=== PATIENT | female | born 1995 | race Two or more races ===

== ENCOUNTER 2022-06-29 20:40 | Emergency (ER) | payer OTHER ==
[~2022-06-29] VITALS: Ht 162.6 cm; Wt 127.0 kg
--- NOTE | 2022-06-29 21:13 | NUR ---
DENNIS 7 FROM HOME FOR C/O RUQ ABD PAIN RADIATING TO BACK SINCE 399 , REPORTED PASSED KIDNEY STONE AT 1700, +N/V. PT A/OX4. TOLERATING R/A WELL WITH NO RESP DISTRESS. CONNECTED PT TO POX AND MONITOR. SAFETY MEASURES IN PLACE.
[2022-06-29] MEDS ORDERED: ONDANSETRON HCL/PF 4 MG/2 ML VIAL IVP ONE (21:30)
[2022-06-29] MEDS ORDERED: IV NS 0.9% 1,000 ML BAG IV ONE (21:30)
--- NOTE | 2022-06-29 21:33 | NUR ---
US TECH AT PT'S BEDSIDE
[2022-06-29] MEDS ORDERED: ONDANSETRON HCL/PF 4 MG/2 ML VIAL ONE (21:35)
--- NOTE | 2022-06-29 22:01 | NUR ---
IV RAC #20G S/L. WEBSITE PROGRAMMER AT PT'S BEDSIDE
--- NOTE | 2022-06-29 22:03 | NUR ---
URINE COLLECTED AND SENT TO LAB
[2022-06-29 22:24] LABS: CALCIUM, SERUM 9.1 mg/dL (8.5-10.1); CREATININE 0.6 mg/dL (0.6-1.3); POTASSIUM 3.6 mmol/L (3.5-5.1)
[2022-06-29 22:31] LABS: BASOPHILS % (AUTO) 0.2 % (0.0-2.0); EOSINOPHILS % (AUTO) 1.1 % (0.0-6.0); HEMATOCRIT 39 % (33-45); HEMOGLOBIN 12.4 g/dL (11.5-14.8); LYMPHOCYTES # (AUTO) 3.1 K/uL (0.8-4.8); LYMPHOCYTES % (AUTO) 24.4 % (20.0-44.0); MEAN CORPUSCULAR HGB CONC 32 g/dl (31.0-36.0); MEAN CORPUSCULAR VOLUME 79 fL (82-100); MONOCYTES # (AUTO) 0.7 K/uL (0.1-1.30); MONOCYTES % (AUTO) 5.2 % (2.0-12.0); NEUTROPHILS # (AUTO) 8.9 K/uL (1.8-8.9); NEUTROPHILS % (AUTO) 69.1 % (43.0-81.0); PLATELET COUNT (AUTO) 213 K/uL (150-450); RED BLOOD CELL COUNT(AUTO) 4.93 MIL/uL (4.0-5.2); WHITE BLOOD COUNT (AUTO) 12.9 K/uL (4.3-11.0)
[2022-06-29 22:32] LABS: ALBUMIN 3.9 g/dL (3.4-5.0); BILIRUBIN,DIRECT 0.2 mg/dL (0.0-0.2); BILIRUBIN,TOTAL 0.5 mg/dL (0.2-1.0); TOTAL PROTEIN, SERUM 7.9 g/dL (6.4-8.2)
--- NOTE | 2022-06-29 22:33 | NUR ---
PT TAKEN TO SARAY GAYTAN & SIGNED FOR WAIVER FORM
[2022-06-29 23:04] LABS: BILIRUBIN,URINE NEGATIVE (NEGATIVE); COLOR,URINE YELLOW (YELLOW); LEUKOCYTE ESTERASE ,URINE NEGATIVE (NEGATIVE); NITRITE, URINE NEGATIVE (NEGATIVE); PROTEIN,URINE NEGATIVE (NEGATIVE); UGLUCOSE NEGATIVE (NEGATIVE); UROBILINOGEN,URINE 0.2 EU/dL (0.2)
[2022-06-30] MEDS ORDERED: FAMO20TA8 PO (00:05)
[2022-06-30] MEDS ORDERED: MAG HYDROX/AL HYDROX/SIMETH 30 ML UDC ONE (00:08)
--- NOTE | 2022-06-30 00:22 | NUR ---
IV removed. Catheter intact and site benign. Pressure and 4x4 applied to site. No bleeding noted.
[2022-06-30] MEDS ORDERED: LIDOCAINE VISCOUS 2% UD 15 ML UDC MM ONE (00:30)
[2022-06-30] MEDS ORDERED: MAG HYDROX/AL HYDROX/SIMETH 30 ML UDC PO ONE (00:30)
--- NOTE | 2022-06-30 00:44 | NUR ---
Patient discharged to home in stable condition. Written and verbal after care instructions given. Patient verbalizes understanding of instruction.
[2022-06-30 01:23] VITALS: BP 105/69
== END 2022-06-30 01:24 | disposition home or self-care (01) ==
LOC: ER 20:43
DX: R10.11 Right upper quadrant pain (principal); I10 Essential (primary) hypertension; E11.9 Type 2 diabetes mellitus without complications; J45.909 Unspecified asthma, uncomplicated; Z88.0 Allergy status to penicillin; Z88.1 Allergy status to other antibiotic agents; Z88.2 Allergy status to sulfonamides; Z88.5 Allergy status to narcotic agent
CPT/HCPCS: 99285; 74176; 96374; 76705; 96361; 85025; 80048; 83690; 80076; 84703; 81003; 36415; J2405; J7030

== ENCOUNTER 2025-02-07 12:51 | Emergency (ER) | payer OTHER ==
[~2025-02-07] VITALS: Ht 162.6 cm; Wt 114.8 kg
[~2025-02-07 12:51] MED LIST: FAMO20TA8 PO
[2025-02-07 13:28] LABS: PLATELET COUNT (AUTO) 196 K/uL (150-450); RED BLOOD CELL COUNT(AUTO) 4.75 MIL/uL (4.0-5.2); RED CELL DISTRIBUTION WIDTH 14.2 % (11.5-15.0); WHITE BLOOD COUNT (AUTO) 7.5 K/uL (4.3-11.0)
[2025-02-07 13:29] LABS: CALCIUM, SERUM 8.5 mg/dL (8.5-10.1); CREATININE 0.8 mg/dL (0.6-1.3); SODIUM SERUM 141 mmol/L (136-145); UREA NITROGEN, BLOOD 7 mg/dL (7-18)
[2025-02-07 13:41] LABS: NT-PRO BNP 85 pg/mL (0-125)
[2025-02-07 15:31] VITALS: BP 122/81; TEMP 98.4; O2SAT 98
== END 2025-02-07 15:32 | disposition home or self-care (01) ==
LOC: ER 12:59
DX: R55 Syncope and collapse (principal); T50.905A Adverse effect of unspecified drugs, medicaments and biological substances, initial encounter; R07.89 Other chest pain; I11.9 Hypertensive heart disease without heart failure; R06.02 Shortness of breath; E11.9 Type 2 diabetes mellitus without complications; G40.909 Epilepsy, unspecified, not intractable, without status epilepticus; I48.0 Paroxysmal atrial fibrillation; J45.909 Unspecified asthma, uncomplicated; Z88.0 Allergy status to penicillin; Z88.1 Allergy status to other antibiotic agents; Z88.2 Allergy status to sulfonamides; Z88.5 Allergy status to narcotic agent; Y92.89 Other specified places as the place of occurrence of the external cause
CPT/HCPCS: 36415; 71045-TC; 80048-TC; 83880; 84443-TC; 84484-TC; 85025-TC

== ENCOUNTER 2025-02-16 21:11 | Emergency (ER) | payer OTHER ==
[~2025-02-16] VITALS: Ht 162.6 cm; Wt 114.8 kg
[2025-02-16 22:00] LABS: PLATELET COUNT (AUTO) 190 K/uL (150-450); RED BLOOD CELL COUNT(AUTO) 4.91 MIL/uL (4.0-5.2); RED CELL DISTRIBUTION WIDTH 14.4 % (11.5-15.0); WHITE BLOOD COUNT (AUTO) 10.9 K/uL (4.3-11.0)
[2025-02-16 22:16] LABS: ASPARTATE AMINOTRANSFERASE 16.0 U/L (15-37); CALCIUM, SERUM 9.1 mg/dL (8.5-10.1); CREATININE 0.8 mg/dL (0.6-1.3); SODIUM SERUM 141.0 mmol/L (136-145); TOTAL PROTEIN, SERUM 8.1 g/dL (6.4-8.2); UREA NITROGEN, BLOOD 12.0 mg/dL (7-18)
[2025-02-16] MEDS: IV NS 0.9% 1,000 ML BAG IV ONE (22:18)
[2025-02-16 22:28] LABS: PREGNANCY TEST URINE QUAL NEGATIVE (NEGATIVE)
[2025-02-16 22:32] LABS: APPEARANCE,URINE CLEAR (CLEAR); BLOOD, URINE Negative Ery/uL (NEGATIVE); LEUKOCYTE ESTERASE ,URINE Negative (NEGATIVE); UGLUCOSE Negative (NEGATIVE)
[2025-02-16] MEDS ORDERED: ONDANSETRON HCL/PF 4 MG/2 ML VIAL ONE (22:32)
[2025-02-16] MEDS ORDERED: KETOROLAC TROMETHAMINE INJ 30 MG/ML VIAL ONE (22:32)
[2025-02-16] MEDS: KETOROLAC TROMETHAMINE 15 MG/ML VIAL IV ONE (22:32)
[2025-02-16] MEDS: ONDANSETRON HCL/PF 4 MG/2 ML VIAL IVP ONE (22:32)
[2025-02-16 22:44] LABS: NITRITE, URINE POSITIVE (NEGATIVE)
[2025-02-16 23:19] LABS: ADD URINE CULTURE YES
[2025-02-16] MEDS ORDERED: IV NS 0.9% 250 ML IV ONE (23:45)
[2025-02-16] MEDS ORDERED: IOHEXOL-300 100 ML VIAL IV ONE (23:45)
[2025-02-16] MEDS ORDERED: CT SWABBABLE VALVE TRANS SET 1 EA INFUS.SET MC ONE (23:46)
[2025-02-17] MEDS ORDERED: ONDA4TAB5 PO (00:40)
[2025-02-17] MEDS ORDERED: IBUP-1957 PO (00:40)
[2025-02-17 00:57] VITALS: BP 134/82; TEMP 98.5; O2SAT 97
== END 2025-02-17 00:58 | disposition home or self-care (01) ==
LOC: ER 21:13
DX: R10.11 Right upper quadrant pain (principal); R11.0 Nausea; I11.9 Hypertensive heart disease without heart failure; E11.9 Type 2 diabetes mellitus without complications; G40.909 Epilepsy, unspecified, not intractable, without status epilepticus; J45.909 Unspecified asthma, uncomplicated; Z88.0 Allergy status to penicillin; Z88.1 Allergy status to other antibiotic agents; Z88.2 Allergy status to sulfonamides; Z88.5 Allergy status to narcotic agent
CPT/HCPCS: 99285; 74177; 96374; 76705; 96361; 96375; 85025; 80048; 87086; 83690; 80076; 84703; 81001; 36415; J1885; J2405; J7030; J7050; Q9967

== ENCOUNTER 2025-03-03 21:30 | Emergency (ER) | payer OTHER ==
[~2025-03-03] VITALS: Ht 132.1 cm; Wt 113.4 kg
[~2025-03-03 21:30] MED LIST changes: +IBUP-1957 PO; +ONDA4TAB5 PO
[2025-03-03] MEDS ORDERED: METOCLOPRAMIDE HCL 10 MG/2 ML VIAL ONE (23:19)
[2025-03-03] MEDS ORDERED: KETOROLAC TROMETHAMINE 15 MG/ML VIAL ONE (23:19)
[2025-03-03] MEDS: METOCLOPRAMIDE HCL 10 MG/2 ML VIAL IV ONE (23:26)
[2025-03-03] MEDS: KETOROLAC TROMETHAMINE 15 MG/ML VIAL IV ONE (23:26)
[2025-03-03] MEDS: IV NS 0.9% 1,000 ML BAG IV ONE (23:26)
[2025-03-03 23:56] LABS: CALCIUM, SERUM 8.5 mg/dL (8.5-10.1); CREATININE 0.6 mg/dL (0.6-1.3); SODIUM SERUM 143.0 mmol/L (136-145); UREA NITROGEN, BLOOD 12.0 mg/dL (7-18)
[2025-03-04 00:06] LABS: PLATELET COUNT (AUTO) 222 K/uL (150-450); RED BLOOD CELL COUNT(AUTO) 4.56 MIL/uL (4.0-5.2); RED CELL DISTRIBUTION WIDTH 14.5 % (11.5-15.0); WHITE BLOOD COUNT (AUTO) 9.4 K/uL (4.3-11.0)
[2025-03-04 00:12] LABS: ASPARTATE AMINOTRANSFERASE 12.0 U/L (15-37); TOTAL PROTEIN, SERUM 7.0 g/dL (6.4-8.2)
[2025-03-04] MEDS ORDERED: ONDA4TAB5 PO (01:22)
[2025-03-04] MEDS ORDERED: KETO10TA2 PO (01:22)
[2025-03-04] MEDS ORDERED: PANT40TA49 PO (01:22)
[2025-03-04] MEDS ORDERED: FAMOTIDINE/PF INJ 20 MG/2 ML VIAL IV ONE (01:28)
[2025-03-04] MEDS ORDERED: PANTOPRAZOLE 40 MG VIAL ONE (01:28)
[2025-03-04] MEDS: FAMOTIDINE/PF INJ 20 MG/2 ML VIAL IV ONE (01:31)
[2025-03-04] MEDS: PANTOPRAZOLE 40 MG VIAL IV ONE (01:32)
[2025-03-04 01:47] VITALS: BP 115/68; TEMP 97.8; O2SAT 98
== END 2025-03-04 01:47 | disposition home or self-care (01) ==
LOC: ER 22:08
DX: R10.11 Right upper quadrant pain (principal); G40.909 Epilepsy, unspecified, not intractable, without status epilepticus; I11.9 Hypertensive heart disease without heart failure; J45.909 Unspecified asthma, uncomplicated; E11.9 Type 2 diabetes mellitus without complications; Z79.84 Long term (current) use of oral hypoglycemic drugs; Z88.0 Allergy status to penicillin; Z88.1 Allergy status to other antibiotic agents; Z88.2 Allergy status to sulfonamides; Z88.5 Allergy status to narcotic agent
CPT/HCPCS: 99285; 96374; 76705; 96361; 96375 ×2; 85025; 83690; 36415; 80053; J1885; J2765; J7030; J1308; J2470

== ENCOUNTER 2025-03-07 20:17 | Emergency (ER) | payer OTHER ==
[~2025-03-07] VITALS: Ht 162.6 cm; Wt 108.9 kg
[~2025-03-07 20:17] MED LIST changes: +KETO10TA2 PO; +PANT40TA49 PO
[2025-03-07 23:00] LABS: PLATELET COUNT (AUTO) 204 K/uL (150-450); RED BLOOD CELL COUNT(AUTO) 4.44 MIL/uL (4.0-5.2); RED CELL DISTRIBUTION WIDTH 14.4 % (11.5-15.0); WHITE BLOOD COUNT (AUTO) 10.2 K/uL (4.3-11.0)
[2025-03-07 23:08] LABS: CALCIUM, SERUM 8.5 mg/dL (8.5-10.1); CREATININE 0.8 mg/dL (0.6-1.3); SODIUM SERUM 143 mmol/L (136-145); UREA NITROGEN, BLOOD 11 mg/dL (7-18)
[2025-03-07 23:13] LABS: ALCOHOL, BLOOD < 3 mg/dL (0-10); ASPARTATE AMINOTRANSFERASE 13 U/L (15-37); TOTAL PROTEIN, SERUM 6.9 g/dL (6.4-8.2)
[2025-03-07 23:30] LABS: AMPHETAMINE, URINE NEGATIVE (NEGATIVE); BARBITURATE, URINE NEGATIVE (NEGATIVE); BENZODIAZEPINE, URINE NEGATIVE (NEGATIVE); CANNABINOID, URINE NEGATIVE (NEGATIVE); COCCAINE, URINE NEGATIVE (NEGATIVE); OPIATE, URINE NEGATIVE (NEGATIVE)
[2025-03-08 00:14] VITALS: BP 128/78; TEMP 98; O2SAT 97
== END 2025-03-08 00:15 | disposition home or self-care (01) ==
LOC: ER 20:20
DX: G40.909 Epilepsy, unspecified, not intractable, without status epilepticus (principal); E11.9 Type 2 diabetes mellitus without complications; I11.9 Hypertensive heart disease without heart failure; J45.909 Unspecified asthma, uncomplicated; Z79.899 Other long term (current) drug therapy; Z88.0 Allergy status to penicillin; Z88.1 Allergy status to other antibiotic agents; Z88.2 Allergy status to sulfonamides; Z88.5 Allergy status to narcotic agent
CPT/HCPCS: 36415; 70450-TC; 71045-TC; 80048-TC; 80076-TC; 85025-TC; G0480